=== PATIENT | female | born 1965 | race Caucasian/White ===

== ENCOUNTER 2020-11-22 18:35 | Inpatient (IN) | payer MEDICAID ==
[~2020-11-22] VITALS: Ht 162.6 cm; Wt 60.8 kg
--- NOTE | 2020-11-22 18:45 | NUR ---
[id number] FROM [facility] C/O WEAKNESS, UNABLE TO WALK. TACHY YARDAGE CONTROL CLERK. WOUNDS NOTED TO SACRAL AND BLE COVERED W/ OLD DRESSINg. iv access started. blood draw done sent to lab. pt was provided with bed bath.
[2020-11-22] MEDS ORDERED: IV NS 0.9% 1,000 ML BAG IV ONE (19:00)
[2020-11-22 19:22] LABS: BASOPHILS # (AUTO) 0.1 /CMM (0.0-0.2); BASOPHILS % (AUTO) 0.6 % (0.0-2.0); EOSINOPHILS % (AUTO) 0.5 % (0.0-6.0); HEMATOCRIT 41 % (33-45); HEMOGLOBIN 12.7 g/dL (11.5-14.8); LYMPHOCYTES # (AUTO) 1.7 /CMM (0.8-4.8); LYMPHOCYTES % (AUTO) 8.8 % (20.0-44.0); MEAN CORPUSCULAR HGB CONC 31 g/dl (31.0-36.0); MEAN CORPUSCULAR VOLUME 78 fL (82-100); MONOCYTES # (AUTO) 0.6 /CMM (0.1-1.30); NEUTROPHILS # (AUTO) 16.8 /CMM (1.8-8.9); NEUTROPHILS % (AUTO) 87.1 % (43.0-81.0); RED BLOOD CELL COUNT(AUTO) 5.23 MIL/uL (4.0-5.2); WHITE BLOOD COUNT (AUTO) 19.3 K/uL (4.3-11.0)
[2020-11-22 19:37] LABS: CALCIUM, SERUM 8.8 mg/dL (8.5-10.1); CARBON DIOXIDE 22 mmol/L (21-32); CHLORIDE 99 mmol/L (98-107); CREATININE 0.9 mg/dL (0.6-1.3); GLUCOSE 130 mg/dL (74-106); POTASSIUM 3.9 mmol/L (3.5-5.1); SODIUM SERUM 134 mmol/L (136-145); UREA NITROGEN, BLOOD 15 mg/dL (7-18)
[2020-11-22 19:41] LABS: ALCOHOL, BLOOD < 3 mg/dL (0-0)
[2020-11-22 19:42] LABS: ACETAMINOPHEN 0 ug/ml (10-30)
[2020-11-22 19:50] LABS: ALANINE AMINOTRANSFERASE 12 U/L (12-78); ALBUMIN 2.1 g/dL (3.4-5.0); ALKALINE PHOSPHATASE 110 U/L (46-116); ASPARTATE AMINOTRANSFERASE 19 U/L (15-37); B-TYPE NATRIURETIC PEPTIDE 725 PG/ML (0-125); BILIRUBIN,DIRECT 0.2 mg/dL (0.0-0.2); BILIRUBIN,TOTAL 0.4 mg/dL (0.2-1.0); TOTAL PROTEIN, SERUM 8.6 g/dL (6.4-8.2)
[2020-11-22 20:05] LABS: CREATINE KINASE, TOTAL 61 U/L (26-192)
[2020-11-22 20:20] LABS: PLATELET COUNT (AUTO) 955 /CMM (150-450)
--- NOTE | 2020-11-22 20:21 | NUR ---
PT CHANGED, DOES HAVE WOUNDS ON HER LEGS AND SACRAL AREA.
--- NOTE | 2020-11-22 20:25 | NUR ---
LF 20G IV STARTED, PT NOTED TO BE IN S.T. @ 148. MD AWARE. EKG OBTAINED.
--- NOTE | 2020-11-22 20:45 | NUR ---
COVID SWAB SENT TO LAB.
--- NOTE | 2020-11-22 20:55 | NUR ---
URINE COLLECTED, SENT TO LAB.
[2020-11-22] MEDS ORDERED: ONDANSETRON HCL/PF 4 MG/2 ML VIAL ONE (20:57)
[2020-11-22] MEDS ORDERED: MORPHINE SULFATE INJ 4 MG/ML DISP.SYRIN ONE (20:57)
[2020-11-22] MEDS ORDERED: PIPERACILLIN /TAZOBACTAM 3.375 G in IV D5W 50 ML IV ONE (21:00)
[2020-11-22] MEDS ORDERED: VANCOMYCIN 1 GM in IV D5W 250 ML IV ONE (21:00)
--- NOTE | 2020-11-22 21:03 | NUR ---
PT C/O FOOT PAIN. MD ORDERED MORPHINE 4MG IVP NOW AND ZOFRAN 4MG IVP NOW.
[2020-11-22] MEDS ORDERED: PIPERACILLIN /TAZOBACTAM 3.375 G VIAL IV ONE (21:04)
[2020-11-22] MEDS ORDERED: VANCOMYCIN 1 GM VIAL ONE (21:04)
[2020-11-22 21:10] LABS: BILIRUBIN,URINE MODERATE (NEGATIVE); COLOR,URINE YELLOW (YELLOW); LEUKOCYTE ESTERASE ,URINE Negative (NEGATIVE); NITRITE, URINE Negative (NEGATIVE); PROTEIN,URINE 30 mg/dl (NEGATIVE); UGLUCOSE Negative (NEGATIVE); UROBILINOGEN,URINE >=8.0 EU/dL (0.2)
[2020-11-22 21:10] LABS: EOSINOPHILS % (MANUAL) 1 % (0-4); LYMPHOCYTES % (MANUAL) 11 % (16-48); MONOCYTES % (MANUAL) 4 % (0-11.0); NEUTROPHILS % (MANUAL) 84 (42-76)
[2020-11-22] MEDS ORDERED: ONDANSETRON HCL/PF 4 MG/2 ML VIAL IV ONE (21:30)
[2020-11-22] MEDS ORDERED: MORPHINE SULFATE INJ 2 MG/ML DISP.SYRIN IV ONE (21:30)
[2020-11-22] MEDS ORDERED: IOHEXOL-300 100 ML VIAL IV ONE (21:38)
--- NOTE | 2020-11-22 21:40 | NUR ---
SPOKE TO MD REGARDING PT'S HR, STATED TO DO A REPEAT EKG. EMT AWARE.
--- NOTE | 2020-11-22 21:40 | NUR ---
RADIOLOGY AT BEDSIDE SPEAKING TO PT REGARDING CT.
--- NOTE | 2020-11-22 21:55 | NUR ---
BROUGHT TO CT
[2020-11-22] MEDS ORDERED: LORAZEPAM INJ 2 MG/ML VIAL IV ONE (22:00)
[2020-11-22] MEDS ORDERED: MAG HYDROX/AL HYDROX/SIMETH 30 ML UDC PO PRN (22:00)
[2020-11-22] MEDS ORDERED: LORAZEPAM INJ 2 MG/ML VIAL IV PRN (22:00)
[2020-11-22] MEDS ORDERED: Z GUARD REMEDY 2 OZ OINT TP PRN (22:00)
[2020-11-22] MEDS ORDERED: IV NS 0.9% 1,000 ML IV ONE (22:00)
[2020-11-22] MEDS ORDERED: TEMAZEPAM 15 MG CAPSULE PO PRN (22:00)
[2020-11-22] MEDS ORDERED: ONDANSETRON HCL/PF 4 MG/2 ML VIAL IVP PRN (22:00)
[2020-11-22] MEDS ORDERED: MAGNESIUM HYDROXIDE 30 ML UDC PO PRN (22:00)
[2020-11-22] MEDS ORDERED: HYDROCODONE/APAP 5/325MG TABLET PO PRN (22:00)
--- NOTE | 2020-11-22 22:10 | NUR ---
PT BACK FROM CT. ON MONITOR AND PULSE OX. REMAINS TACHY AT 143
--- NOTE | 2020-11-22 23:40 | NUR ---
PT ASLEEP, VSS. WILL CONTINUE TO MONITOR.
[2020-11-23] MEDS: IV NS 0.9% 1,000 ML IV PRN (00:05)
[2020-11-23] MEDS ORDERED: ENOXAPARIN SODIUM 40 MG/0.4 ML DISP.SYRIN SQ ONE ×2 (00:05→21:00)
[2020-11-23] MEDS: ENOXAPARIN SODIUM 40 MG/0.4 ML DISP.SYRIN SQ SCH ×2 (00:12→21:07)
--- NOTE | 2020-11-23 02:15 | NUR ---
PT RESTING COMFORTABLY. VSS.
[2020-11-23] MEDS ORDERED: ZOSYN IVPB 3.375 G in IV D5W 50ml IV ONE (03:00)
--- NOTE | 2020-11-23 04:38 | NUR ---
MANISHID SWABBED, SENT TO LAB.
[2020-11-23 05:27] LABS: BASOPHILS # (AUTO) 0.1 /CMM (0.0-0.2); BASOPHILS % (AUTO) 0.6 % (0.0-2.0); EOSINOPHILS % (AUTO) 1.7 % (0.0-6.0); HEMATOCRIT 30 % (33-45); HEMOGLOBIN 9.4 g/dL (11.5-14.8); LYMPHOCYTES # (AUTO) 1.6 /CMM (0.8-4.8); LYMPHOCYTES % (AUTO) 12.7 % (20.0-44.0); MEAN CORPUSCULAR HGB CONC 32 g/dl (31.0-36.0); MEAN CORPUSCULAR VOLUME 77 fL (82-100); MONOCYTES # (AUTO) 0.5 /CMM (0.1-1.30); MONOCYTES % (AUTO) 3.6 % (2.0-12.0); NEUTROPHILS # (AUTO) 10.3 /CMM (1.8-8.9); NEUTROPHILS % (AUTO) 81.4 % (43.0-81.0); PLATELET COUNT (AUTO) 617 /CMM (150-450); RED BLOOD CELL COUNT(AUTO) 3.89 MIL/uL (4.0-5.2); WHITE BLOOD COUNT (AUTO) 12.7 K/uL (4.3-11.0)
[2020-11-23 05:44] LABS: CALCIUM, SERUM 7.7 mg/dL (8.5-10.1); CREATININE 0.8 mg/dL (0.6-1.3); MAGNESIUM 1.6 mg/dL (1.8-2.4); PHOSPHORUS 2.9 mg/dL (2.5-4.9); POTASSIUM 2.9 mmol/L (3.5-5.1)
[2020-11-23 05:56] LABS: THYROID STIMULATING HORMONE 3.611 uIU/mL (0.358-3.74)
--- NOTE | 2020-11-23 07:32 | NUR ---
PATIENT IN BED ASLEEP, EASILY AROUSABLE BY VOICE, HOOOKED TO MONITOR. VSS. GOES BACK IMMEDIATELY TO SLEEP. WILL CONTINUE TO MONITOR
[2020-11-23] MEDS: PANTOPRAZOLE 40 MG TABLET.DR PO SCH (07:46)
[2020-11-23] MEDS ORDERED: PANTOPRAZOLE 40 MG TABLET.DR PO ONE (07:46)
[2020-11-23] MEDS: VANCOMYCIN 0.75 GM in IV D5W 250 ML IV SCH ×2 (08:14→16:21)
--- NOTE | 2020-11-23 08:42 | NUR ---
PATIENT REPOSITIONED FOR COMFORT
--- NOTE | 2020-11-23 10:23 | NUR ---
PATIENT IN BED ASLEEP, EASILY AROUSABLE BY VOICE, HOOOKED TO MONITOR. VSS. GOES BACK IMMEDIATELY TO SLEEP. WILL CONTINUE TO MONITOR
[2020-11-23] MEDS: POTASSIUM CHLORIDE 20 MEQ TAB.PRT.SR PO SCH ×5 (10:30→14:50)
[2020-11-23] MEDS ORDERED: Magnesium 1GM/D5W 100ML PREMIX 200 ML IV ONE (10:35)
[2020-11-23] MEDS ORDERED: POTASSIUM CHLORIDE 20 MEQ TAB.PRT.SR PO ONE (10:36)
[2020-11-23] MEDS: Magnesium 1GM/D5W 100ML PREMIX 100 ML IV SCH ×2 (10:40→11:50)
[2020-11-23] MEDS: PIPERACILLIN /TAZOBACTAM 3.375 G in IV D5W 50 ML IV SCH ×3 (12:13→23:30)
--- NOTE | 2020-11-23 12:41 | NUR ---
PATIENT AWAKE, EATING BREAKFAST. TOLERATING PO WELL.
--- NOTE | 2020-11-23 12:54 | NUR ---
GIVEN PATIENT K DUR 20MG PO. WILL GIVE THE REST OF K DUR AFTER EVERY HOUR
--- NOTE | 2020-11-23 15:33 | NUR ---
PATIENT IN BED ASLEEP, EASILY AROUSABLE BY VOICE, HOOOKED TO MONITOR. VSS. GOES BACK IMMEDIATELY TO SLEEP. WILL CONTINUE TO MONITOR
--- NOTE | 2020-11-23 17:51 | NUR ---
CLEANED PATIENT. CHANGED TO NEW LINEN AND HOSP GOWN. REPOSITIONED FOR COMFORT
--- NOTE | 2020-11-23 18:00 | NUR ---
PATIENT NOTED WITH SACROCOCYX UNABLE TO DETERMINE PRESSURE ULCER 8CM X 6CM, CLEANSED W NS. PAT DRY, APPLIED ZINC OXIDE, APPLIED W FOAM DRESSING. MASD TO ENTIRE RIGHT AND LEFT BUTTOCK EXTENDING TO BOTH SIDES OF UPPER THIGH AND GROIN AREA. CLEANSED W NS, PAT DRY AND APPLIED ZINC OXIDE. RLE AND LLE MULTIPLE SCABBED AND OPEN WOUNDS. CLEANSED W NS. PAT DRY, LEFT OPEN TO AIR.
--- NOTE | 2020-11-23 19:24 | NUR ---
ASSUMED CARE. PT AAOX4, NO ACUTE DISTRESS NOTED, RESP EVEN AND UNLABORED. NO PAIN OR DISCOMFORT NOTED AT THIS TIME. PT REMAINS ON CARDIAC MONITORING, CONTINUOUS POX. CALL LIGHT WITHIN REACH. WILL CONTINUE TO MONITOR PT CLOSELY.
[2020-11-23] MEDS ORDERED: HYDROCODONE/APAP 10/325MG TABLET ONE (23:59)
[2020-11-24] MEDS: VANCOMYCIN 0.75 GM in IV D5W 250 ML IV SCH ×2 (00:03→18:32)
[2020-11-24] MEDS: HYDROCODONE/APAP 10/325MG TABLET PO PRN ×2 (00:13→14:21)
--- NOTE | 2020-11-24 01:18 | NUR ---
PT RESTING QUIETLY, NO ACUTE DISTRESS NOTED, RESP EVEN AND UNLABORE. NO PAIN OR DISCOMFORT NOTED AT THIS TIME. CALL LIGHT WITHIN REACH. WILL CONTINUE TO MONITOR PT CLOSELY.
[2020-11-24] MEDS ORDERED: MORPHINE SULFATE INJ 4 MG/ML DISP.SYRIN IV STA (05:07)
[2020-11-24] MEDS ORDERED: ONDANSETRON HCL/PF 4 MG/2 ML VIAL ONE ×2 (05:08→14:19)
[2020-11-24] MEDS ORDERED: MORPHINE SULFATE INJ 4 MG/ML DISP.SYRIN ONE (05:08)
[2020-11-24] MEDS: IV NS 0.9% 1,000 ML IV PRN ×3 (05:15→21:28)
--- NOTE | 2020-11-24 05:15 | NUR ---
SL 22G TO R WRIST. SL TO LFA REMOVED, CATH INTACT, 4X4 AND PRESSURE APPLIED.
[2020-11-24] MEDS ORDERED: ONDANSETRON HCL/PF - ER 4 MG/2 ML VIAL IV ONE (05:30)
[2020-11-24] MEDS: PIPERACILLIN /TAZOBACTAM 3.375 G in IV D5W 50 ML IV SCH ×3 (05:57→18:00)
--- NOTE | 2020-11-24 06:02 | NUR ---
CLEANED PATIENT. CHANGED TO NEW LINEN AND HOSP GOWN.
--- NOTE | 2020-11-24 07:14 | NUR ---
REPORT GIVEN TO AM SHIFT BRENDA ESTES.
[2020-11-24] MEDS ORDERED: PANTOPRAZOLE 40 MG TABLET.DR PO ONE (07:51)
[2020-11-24] MEDS: PANTOPRAZOLE 40 MG TABLET.DR PO SCH (07:52)
[2020-11-24 08:41] LABS: BASOPHILS % (AUTO) 0.6 % (0.0-2.0); EOSINOPHILS % (AUTO) 7.6 % (0.0-6.0); HEMATOCRIT 32 % (33-45); HEMOGLOBIN 9.9 g/dL (11.5-14.8); LYMPHOCYTES # (AUTO) 1.6 /CMM (0.8-4.8); LYMPHOCYTES % (AUTO) 20.3 % (20.0-44.0); MEAN CORPUSCULAR HGB CONC 31 g/dl (31.0-36.0); MEAN CORPUSCULAR VOLUME 79 fL (82-100); MONOCYTES # (AUTO) 0.4 /CMM (0.1-1.30); MONOCYTES % (AUTO) 5.2 % (2.0-12.0); NEUTROPHILS # (AUTO) 5.2 /CMM (1.8-8.9); NEUTROPHILS % (AUTO) 66.3 % (43.0-81.0); PLATELET COUNT (AUTO) 692 /CMM (150-450); RED BLOOD CELL COUNT(AUTO) 4.07 MIL/uL (4.0-5.2); WHITE BLOOD COUNT (AUTO) 7.8 K/uL (4.3-11.0)
--- NOTE | 2020-11-24 09:42 | NUR ---
held 8am Vancomycin IV due to vanco trough level 29, Pati (pharmacist) aware.
--- NOTE | 2020-11-24 09:48 | NUR ---
WOUND CARE CONSULT: PT PRESENTS WITH LARGE SACRAL UNSTAGEABLE ULCER WITH FOUL PURULENT DRAINAGE, RASH AND INCONTINENCE ASSOCIATED SKIN DAMAGE TO BUTTOCKS AND PERINEUM WELL BILATERAL LOWER LEG DRY WOUNDS WITH OPEN AREA TO LEFT LOWER LEG, PRESENT ON ADMISSION. RECOMMEND SURGICAL AND DPM CONSULTS. DR JESSENIA CHEN AND DR MELTON NOTIFIED OF CONSULT REQUESTS. RECOMMENDATIONS MADE FOR SACRAL AND BUTTOCK WOUNDS/SKIN DAMAGE AND DISCUSSED WITH NURSING STAFF. DEFER TO DPM FOR LOWER EXTREMITIES. MD IN AGREEMENT WITH PLAN OF CARE.
[2020-11-24 09:57] LABS: CALCIUM, SERUM 8.2 mg/dL (8.5-10.1); CREATININE 0.7 mg/dL (0.6-1.3); POTASSIUM 4.1 mmol/L (3.5-5.1)
[2020-11-24] MEDS: DAKINS QUARTER STRENGTH (0.125%) 480 ML BOTTLE TOP SCH (10:00)
--- NOTE | 2020-11-24 12:12 | NUR ---
Funds Development Director consult requested by CARMEN Cerna for homelessness. Patient was lying in her bed sleeping. Patient was arousable by verbal cues. Patient is known to this SW from previous admission. Patient informed this SW that she has been homeless for 4 years. Patient informed this SW that she was previously living, [facility]. Patient reported to this SW that she left [facility] because she was not able to smoke cigarettes at the facility. Patient reported that she had been on the streets with her wheelchair. Patient reported that she would like to return to a assisted facility. Patient became emotional stating that these last few weeks have been difficult for her as she tries to stay safe on the streets. SW validated patient's emotions and patient thanked this SW for speaking with her. Patient informed this SW that she was brought to [facility] without her wheelchair. SW informed patient this SW would follow-up with case management team regarding patient wheelchair. Plan: SW to coordinate with Case Management team regarding assisted facility placement and a wheelchair for the patient. SW remains available for all needs regarding this patient.
--- NOTE | 2020-11-24 13:57 | NUR ---
VANCO TROUGH AT 5PM
[2020-11-24] MEDS ORDERED: HYDROCODONE/APAP 10/325MG TABLET ONE (14:19)
--- NOTE | 2020-11-24 16:43 | NUR ---
DR CHEN AT BEDSIDE TO CHECK WOUNDS OF PATIENT. RECOMMENDED PODIATRY CONSULT AND WILL SCHEDULE FOR DEBRIDEMENT
[2020-11-24] MEDS ORDERED: PIPERACILLIN /TAZOBACTAM 3.375 G VIAL IV ONE (17:31)
[2020-11-24] MEDS: CLOTRIMAZOLE 1% 15 GM TUBE TP SCH (17:35)
--- NOTE | 2020-11-24 17:40 | NUR ---
CLEANED PATIENT, CHANGED TO NEW LINEN AND HOSP GOWN, PROVIDED W WARM BLANKET.
--- NOTE | 2020-11-24 17:42 | NUR ---
PATIENT NOTED WITH SACROCOCYX UNABLE TO DETERMINE PRESSURE ULCER 8CM X 6CM, CLEANSED W NS. PAT DRY, APPLIED ZINC OXIDE, COVERED W FOAM DRESSING. MASD TO ENTIRE RIGHT AND LEFT BUTTOCK EXTENDING TO BOTH SIDES OF UPPER THIGH AND GROIN AREA. CLEANSED W NS, PAT DRY AND APPLIED LOTRIMIN 1% and ZINC OXIDE. RLE AND LLE MULTIPLE SCABBED AND OPEN WOUNDS. CLEANSED W NS. PAT DRY, LEFT OPEN TO AIR.
--- NOTE | 2020-11-24 18:06 | NUR ---
PATIENT ABLE TO EAT 90% OF DINNER.
--- NOTE | 2020-11-24 18:48 | NUR ---
CALLED PODIATRY WOUND CARE DR. CADENA [phone] LEFT [facility] TO CALL US BACK.
--- NOTE | 2020-11-24 18:55 | NUR ---
COLLECTED 1250 CC OF URINE FROM PROCTOR CATHETER
--- NOTE | 2020-11-24 19:24 | NUR ---
REPORT GIVEN TO PHYLLIS GUTIERREZ FOR CARMEN
--- NOTE | 2020-11-24 20:18 | NUR ---
PT REMAINS ON MONITOR AND PULSE OX. AWARE OF PLAN OF CARE. VSS. WILL CONTINUE TO MONITOR.
[2020-11-24] MEDS: ENOXAPARIN SODIUM 40 MG/0.4 ML DISP.SYRIN SQ SCH (21:19)
[2020-11-24] MEDS ORDERED: ENOXAPARIN SODIUM 40 MG/0.4 ML DISP.SYRIN SQ ONE (21:21)
[2020-11-25] MEDS: PIPERACILLIN /TAZOBACTAM 3.375 G in IV D5W 50 ML IV SCH ×4 (00:20→17:47)
--- NOTE | 2020-11-25 00:47 | NUR ---
PT PROVIDED WITH BLANKETS, VSS.
[2020-11-25] MEDS ORDERED: MORPHINE SULFATE INJ 4 MG/ML DISP.SYRIN IV PRN (05:00)
[2020-11-25 05:31] LABS: BASOPHILS % (AUTO) 0.6 % (0.0-2.0); EOSINOPHILS % (AUTO) 6.9 % (0.0-6.0); HEMATOCRIT 30 % (33-45); HEMOGLOBIN 9.6 g/dL (11.5-14.8); LYMPHOCYTES # (AUTO) 1.7 /CMM (0.8-4.8); LYMPHOCYTES % (AUTO) 19.9 % (20.0-44.0); MEAN CORPUSCULAR HGB CONC 32 g/dl (31.0-36.0); MEAN CORPUSCULAR VOLUME 77 fL (82-100); MONOCYTES # (AUTO) 0.5 /CMM (0.1-1.30); MONOCYTES % (AUTO) 5.8 % (2.0-12.0); NEUTROPHILS # (AUTO) 5.7 /CMM (1.8-8.9); NEUTROPHILS % (AUTO) 66.8 % (43.0-81.0); PLATELET COUNT (AUTO) 695 /CMM (150-450); RED BLOOD CELL COUNT(AUTO) 3.88 MIL/uL (4.0-5.2); WHITE BLOOD COUNT (AUTO) 8.5 K/uL (4.3-11.0)
[2020-11-25 05:50] LABS: CALCIUM, SERUM 8.2 mg/dL (8.5-10.1); CREATININE 0.6 mg/dL (0.6-1.3); MAGNESIUM 1.7 mg/dL (1.8-2.4); PHOSPHORUS 3.1 mg/dL (2.5-4.9); POTASSIUM 4.8 mmol/L (3.5-5.1)
--- NOTE | 2020-11-25 07:02 | NUR ---
PT NOTED ASLEEP, VSS.
[2020-11-25] MEDS ORDERED: PANTOPRAZOLE 40 MG TABLET.DR PO ONE (07:55)
[2020-11-25] MEDS: PANTOPRAZOLE 40 MG TABLET.DR PO SCH (07:57)
--- NOTE | 2020-11-25 08:51 | NUR ---
PATIENT IN BED ASLEEP, EASILY AROUSABLE BY VOICE. HOOKED TO MONITOR. VSS. WILL CONTINUE TO MONITOR ACCORDINGLY
[2020-11-25] MEDS: DAKINS QUARTER STRENGTH (0.125%) 480 ML BOTTLE TOP SCH (09:09)
[2020-11-25] MEDS: CLOTRIMAZOLE 1% 15 GM TUBE TP SCH ×2 (09:10→16:56)
[2020-11-25] MEDS ORDERED: Magnesium 1GM/D5W 100ML PREMIX 200 ML IV ONE (12:19)
[2020-11-25] MEDS: Magnesium 1GM/D5W 100ML PREMIX 100 ML IV SCH ×2 (12:20→13:35)
[2020-11-25] MEDS: VANCOMYCIN 0.75 GM in IV D5W 250 ML IV SCH (13:35)
--- NOTE | 2020-11-25 13:39 | NUR ---
GOT BED 324-1
--- NOTE | 2020-11-25 14:26 | NUR ---
report given to nolberto SILVA for dyllan
--- NOTE | 2020-11-25 14:46 | NUR ---
wheeled patient via gurney accompanied by RN and emt in no distress, Nurse at bedside to assume care.
[2020-11-25 14:50] VITALS: BP 115/91
--- NOTE | 2020-11-25 14:50 | NUR ---
tele cannon fire direction specialist: admission received pt from transition care to be admitted to floor. pt awake, a/ox3. vital signs taken, pt refused tele monitor. pt says that she doesn't want any surgery done to her. per e.r. report, dr. adams (surgeon) planning to do sacral wound debridement. pt refusing skin assessment and photos. oriented to room and surroundings. vss. will continue to monitor.
[2020-11-25 16:00] VITALS: BP 122/80
--- NOTE | 2020-11-25 16:00 | NUR ---
tele flatwork presser: notes pt still refusing tele and skin assessment. pt just wants to rest. instructed to call for assistance.
[2020-11-25] MEDS: IV NS 0.9% 1,000 ML IV PRN (16:56)
--- NOTE | 2020-11-25 19:15 | NUR ---
m/s board mill supervisor: notes report given to erin (higinio) for continuity of care.
--- NOTE | 2020-11-25 19:30 | NUR ---
MS RN OPENING NOTES RECEIVED PATIENT IN BED AWAKE, ALERT AND ORIENTED X3. ABLE TO VERBALIZE NEEDS. NO S/SX OF ACUTE RESPIRATORY DISTRESS NOTED. DENIES PAIN OR DISCOMFORT AT THIS TIME. IV ACCESS ON RFA #18G PATENT AND INTACT, RUNNING NS@150ML/HR. KEPT CLEAN AND DRY. SAFETY PRECAUTION IN PLACE AND MAINTAINED AT ALL TIMES. BED IN LOWEST LOCKED POSITION, HOB ELEVATED, SIDE RAILS UP X 2, CALL LIGHT AND TABLE WITHIN REACH. WILL CONTINUE TO MONITOR.
[2020-11-25 20:00] VITALS: BP 139/88
[2020-11-25] MEDS: ENOXAPARIN SODIUM 40 MG/0.4 ML DISP.SYRIN SQ SCH (21:20)
[2020-11-26] MEDS: PIPERACILLIN /TAZOBACTAM 3.375 G in IV D5W 50 ML IV SCH ×4 (00:30→17:25)
[2020-11-26] MEDS: IV NS 0.9% 1,000 ML IV PRN ×2 (01:19→12:09)
--- NOTE | 2020-11-26 05:10 | NUR ---
MS RN NOTE: REFUSED SKIN ASSESSMENT PATIENT REFUSING SKIN ASSESSMENT AND PHOTOS. EXPLAINED RISKS VS BENEFITS BUT PATIENT CONTINUED TO REFUSE. PATIENT STATED "NO, I DON'T WANT IT". WILL ENDORSE TO DAY SHIFT NURSE FOR CONTINUITY OF CARE.
[2020-11-26] MEDS: VANCOMYCIN 0.75 GM in IV D5W 250 ML IV SCH ×2 (05:30→23:11)
--- NOTE | 2020-11-26 06:54 | NUR ---
MS RN CLOSING NOTES PATIENT IN BED AWAKE, ALERT AND ORIENTED X3. ABLE TO VERBALIZE NEEDS. NO S/SX OF ACUTE RESPIRATORY DISTRESS NOTED. DENIES PAIN OR DISCOMFORT AT THIS TIME. IV ACCESS ON RFA #18G PATENT AND INTACT, RUNNING NS@150ML/HR. KEPT CLEAN AND DRY. SAFETY PRECAUTION IN PLACE AND MAINTAINED AT ALL TIMES. BED IN LOWEST LOCKED POSITION, HOB ELEVATED, SIDE RAILS UP X 2, CALL LIGHT AND TABLE WITHIN REACH. WILL ENDORSE TO DAY SHIFT NURSE FOR CONTINUITY OF CARE.
[2020-11-26 07:27] LABS: CALCIUM, SERUM 7.9 mg/dL (8.5-10.1); CREATININE 0.7 mg/dL (0.6-1.3); POTASSIUM 3.6 mmol/L (3.5-5.1)
--- NOTE | 2020-11-26 07:30 | NUR ---
MS/RN OPENING NOTES PATIENT RECEIVED IB BED. A/O X3. NO SOB. IN NO APPARENT DISTRESS. ON PROCTOR CATH, INTACT, DRAINING IN YELLOW URINE. LFA #18G NS @150 ML/HR. PROVIDED SAFETY MEASURES. BED IN LOWEST POSITION, LOCKED. SIDE RAILS UP X 2. CALL LIGHT WITHIN REACH. WILL CONTINUE PLAN OF CARE.
[2020-11-26 08:44] VITALS: BP 137/74
[2020-11-26] MEDS: PANTOPRAZOLE 40 MG TABLET.DR PO SCH (08:51)
[2020-11-26] MEDS: DAKINS QUARTER STRENGTH (0.125%) 480 ML BOTTLE TOP SCH (08:52)
[2020-11-26] MEDS: CLOTRIMAZOLE 1% 15 GM TUBE TP SCH ×2 (08:53→17:25)
[2020-11-26 12:00] VITALS: BP 126/68
--- NOTE | 2020-11-26 15:02 | NUR ---
MS/RN NOTES PATIENT FOR SACRAL WOUND DEBRIDEMENT AND R LOWER LEG EXCISIONAL WOUND DEBRIDEMENT. OBTAINED CONSENT FOR BOTH. BUT PATIENT STATED THAT SHE DOESN'T WANT TO DO THE R LEG DEBRIDEMENT ANYMORE. WILL ENDORSE IT TO ONCOMING SHIFT.
[2020-11-26 16:06] VITALS: BP 105/52
--- NOTE | 2020-11-26 18:41 | NUR ---
MS/RN CLOSING NOTES PATIENT RESTING IN BED COMFORTABLY. A/O X3. NO SOB. IN NO APPARENT DISTRESS. ON PROCTOR CATH, INTACT, DRAINING IN YELLOW URINE. LFA #18G. R WRIST #22 G. ROUTINE MEDS WERE GIVEN. SAFETY MEASURES MAINTAINED. BED IN LOWEST POSITION, LOCKED. SIDE RAILS UP X 2. CALL LIGHT WITHIN REACH. WILL ENDORSE TO SEQUINS STRINGER CARMEN..
--- NOTE | 2020-11-26 20:00 | NUR ---
RN NOTES PATIENT RECEIVED IN BED.AWAKE ALERT AFEBRILE. NO SOB. BREATHING EVEN AND UNLABORED. IN NO APPARENT DISTRESS. ON ROOM AIR, TOLERATING WELL. CAILIN MIDLINE. PROVIDED SAFETY MEASURES. BED IN LOWEST POSITION, LOCKED. SIDE RAILS UP X2. CALL LIGHT WITHIN REACH. WILL CONTINUE PLAN OF CARE.
[2020-11-26] MEDS: ENOXAPARIN SODIUM 40 MG/0.4 ML DISP.SYRIN SQ SCH (20:37)
--- NOTE | 2020-11-27 | NUR ---
RN NOTES : PT. IS NPO SINCE MIDNIGHT , FOR PROCEDURES.
[2020-11-27] MEDS: PIPERACILLIN /TAZOBACTAM 3.375 G in IV D5W 50 ML IV SCH ×5 (00:24→23:10)
--- NOTE | 2020-11-27 05:38 | NUR ---
RN NOTES : PT. REFUSED TO SIGNS CONSENT FOR ANESTHESIA FOR PROCEDURES , PT. BEHAVIOUR VERY UNCOOPERATIVE ARGUMENTATIVE WITH STAFF SCREAMING YELLING , WILL CONTINUE TO MONITOR.
--- NOTE | 2020-11-27 06:58 | NUR ---
MS RN CLOSING NOTES PATIENT RESTING IN HER ROOM. PT. BEHAVIOUR VERY UNCOOPERTIVE , NO S/SX OF ACUTE RESPIRATORY DISTRESS NOTED. DENIES PAIN OR DISCOMFORT AT THIS TIME. KEPT CLEAN AND DRY.IV LAC #22G INTACT SAFETY PRECAUTION IN PLACE AND MAINTAINED , CALL LIGHT AND TABLE WITHIN REACH. WILL ENDORSE TO DAY SHIFT NURSE FOR CONTINUITY OF CARE.
[2020-11-27] MEDS: PANTOPRAZOLE 40 MG TABLET.DR PO SCH (07:30)
[2020-11-27 07:38] LABS: BASOPHILS # (AUTO) 0.1 /CMM (0.0-0.2); EOSINOPHILS % (AUTO) 5.4 % (0.0-6.0); HEMATOCRIT 32 % (33-45); HEMOGLOBIN 9.9 g/dL (11.5-14.8); LYMPHOCYTES # (AUTO) 1.3 /CMM (0.8-4.8); LYMPHOCYTES % (AUTO) 22.4 % (20.0-44.0); MEAN CORPUSCULAR HGB CONC 31 g/dl (31.0-36.0); MEAN CORPUSCULAR VOLUME 77 fL (82-100); MONOCYTES # (AUTO) 0.5 /CMM (0.1-1.30); MONOCYTES % (AUTO) 8.8 % (2.0-12.0); NEUTROPHILS # (AUTO) 3.6 /CMM (1.8-8.9); NEUTROPHILS % (AUTO) 62.4 % (43.0-81.0); PLATELET COUNT (AUTO) 635 /CMM (150-450); RED BLOOD CELL COUNT(AUTO) 4.08 MIL/uL (4.0-5.2); WHITE BLOOD COUNT (AUTO) 5.8 K/uL (4.3-11.0)
--- NOTE | 2020-11-27 07:44 | NUR ---
RN OPENING NOTE RECEIVED PATIENT RESTING IN BED. AWAKE, ALERT AND ORIENTED X 3. IV # 22G TO LEFT AC INTACT AND PATENT. CONTINUES ON ROOM AIR WITH NO S/S RESPIRATORY DISTRESS. PATIENT HAS REMAINED NPO THROUGHOUT THE NIGHT. CALL LIGHT WITHIN REACH. WILL CONTINUE TO MONITOR.
[2020-11-27 08:00] VITALS: BP 114/72
[2020-11-27 08:25] LABS: CALCIUM, SERUM 8.7 mg/dL (8.5-10.1); CREATININE 0.6 mg/dL (0.6-1.3); PHOSPHORUS 3.2 mg/dL (2.5-4.9)
[2020-11-27] MEDS: CLOTRIMAZOLE 1% 15 GM TUBE TP SCH ×2 (08:43→17:59)
[2020-11-27] MEDS: DAKINS QUARTER STRENGTH (0.125%) 480 ML BOTTLE TOP SCH (09:13)
--- NOTE | 2020-11-27 10:30 | NUR ---
MS RN NOTE PATIENT REFUSING TO HAVE BOTH DEBRIDEMENTS THAT ARE SCHEDULED. EDUCATED RISKS VS BENEFITS 3X. PATIENT CONTINUE TO REFUSE.
--- NOTE | 2020-11-27 12:16 | NUR ---
MS RN NOTE PATIENT REFUSING BOTH DEBRIDEMENTS SCHEDULED. INFORMED DR. CHEN AND INFORMED TARA MATTHEW.
--- NOTE | 2020-11-27 13:14 | NUR ---
MS RN NOTE SPOKE WITH CHARLENE PRECISION DYER REGARDING PATIENT REFUSING DEBRIDEMENTS. PER CHARLENE SHE WILL CANCEL SCHEDULED PROCEDURES.
--- NOTE | 2020-11-27 15:58 | NUR ---
MS RN NOTE PATIENT SPOKE WITH DR. CHEN ABOUT POSSIBLE DEBRIDEMENT THAT WAS SCHEDULED EARLIER TODAY THAT SHE REFUSED. PATIENT IS NOW AGREEABLE TO DEBRIDEMENT PROCEDURE WITH DR. CHEN TOMORROW. PER MD KEEP PATIENT NPO AFTER MIDNIGHT. PATIENT REFUSED TO HAVE BLOOD TRANSFUSION CONSENT SIGNED DUE TO HER PERSONAL BELIEFS. SHE WAS ABLE TO SIGN REFUSAL FOR BLOOD.
[2020-11-27 16:00] VITALS: BP 115/75
--- NOTE | 2020-11-27 18:23 | NUR ---
MS BRENDA CLOSING NOTE PATIENT CURRENTLY RESTING IN BED. AWAKE, ALERT AND ORIENTED X 3. ABLE TO MAKE NEEDS KNOWN. NO COMPLAINTS OF PAIN THIS SHIFT. CONTINUES ON ROOM AIR WITH NO S/S RESPIRATORY DISTRESS NOTED. PROCTOR CATHETER PATENT AND DRAINING CLEAR, YELLOW URINE. PATIENT WILL BE NPO AT MIDNIGHT FOR DEBRIDEMENT OF WOUNDS TOMORROW. IV TO LEFT AC #22G PATENT WITH NO S/S INFILTRATION OR PHLEBITIS. ASPIRATION, FALLS, AND SAFETY PRECAUTIONS MAINTAINED. CALL LIGHT WITHIN REACH. Addendum: 11/27/20 at 1841 by GIOVANNA COLORADO RN WILL ENDORSE TO PM SHIFT.
[2020-11-27 20:00] VITALS: BP 94/60
[2020-11-27 21:00] VITALS: BP 132/80
[2020-11-27] MEDS: ENOXAPARIN SODIUM 40 MG/0.4 ML DISP.SYRIN SQ SCH (21:00)
--- NOTE | 2020-11-28 | NUR ---
RN NOTES : PT. IS NPO FOR PROCEDURES , PER MD ORDERS, WILL CONTINUE WITH CARE.
[2020-11-28] MEDS: VANCOMYCIN 0.75 GM in IV D5W 250 ML IV SCH (00:28)
[2020-11-28] MEDS: PIPERACILLIN /TAZOBACTAM 3.375 G in IV D5W 50 ML IV SCH ×4 (06:16→23:14)
--- NOTE | 2020-11-28 07:19 | NUR ---
RN NOTES: PATIENT RESTING IN HER ROOM. PT. BEHAVIOUR VERY UNCOOPERTIVE , NO ACUTE RESPIRATORY DISTRESS NOTED. DENIES PAIN OR DISCOMFORT AT THIS TIME. KEPT CLEAN AND DRY.IV LAC #22G INTACT SAFETY PRECAUTION IN PLACE AND MAINTAINED , CALL LIGHT AND TABLE WITHIN REACH. WILL ENDORSE TO DAY SHIFT NURSE FOR CONTINUITY OF CARE.
--- NOTE | 2020-11-28 07:22 | NUR ---
RN NOTES PATIENT RESTING IN BED. , ALERT AWAKE. IV # 18G TO RIGHT AC INTACT AND. CONTINUES ON ROOM AIR WITH NO S/S RESPIRATORY DISTRESS.. CALL LIGHT WITHIN REACH. ENDORSED TO AM NURSE TO CONTUNITY OF CARE..
[2020-11-28] MEDS: PANTOPRAZOLE 40 MG TABLET.DR PO SCH (07:30)
--- NOTE | 2020-11-28 07:43 | NUR ---
MS RN OPENING NOTES RECEIVED PATIENT IN BED, ASLEEP. PATIENT ON ROOM AIR; BREATHING EVEN AND UNLABORED, NO SOB NOTED. NO S/S OF PAIN SUCH MOANING, FACIAL GRIMACING OR GUARDING AT THIS TIME. LAC ALLAN ACCESS G #22 PRESENT AND INTACT. NPO EXCEPT MEDS AT THIS TIME. SAFETY PRECAUTIONS IN PLACE; BED IN LOW POSITION AND LOCKED, RAILS UP X2, CALL LIGHT WITHIN REACH. WILL CONTINUE TO MONITOR PATIENT.
[2020-11-28] MEDS: DAKINS QUARTER STRENGTH (0.125%) 480 ML BOTTLE TOP SCH (08:01)
[2020-11-28] MEDS: CLOTRIMAZOLE 1% 15 GM TUBE TP SCH ×2 (08:01→17:24)
[2020-11-28 08:49] LABS: CALCIUM, SERUM 8.7 mg/dL (8.5-10.1); CREATININE 0.6 mg/dL (0.6-1.3); POTASSIUM 4.3 mmol/L (3.5-5.1)
[2020-11-28] MEDS ORDERED: BACITRACIN 50000 UNITS/VIAL ONE (10:50)
[2020-11-28] MEDS ORDERED: LIDOCAINE MPF 1%-EPI 1:200,000 30 ML VIAL IJ ONE (10:50)
[2020-11-28] MEDS ORDERED: BUPIVACAINE 0.5 % PF 150 MG/30 ML VIAL ONE (10:50)
[2020-11-28] MEDS ORDERED: BUPIVACAINE 0.25% 75 MG/30 ML VIAL ONE (10:51)
--- NOTE | 2020-11-28 10:51 | NUR ---
MS RN NOTES PATIENT WAS TAKEN TO OR FOR PROCEDURE AT 2326
[2020-11-28] MEDS ORDERED: FENTANYL PF 250MCG/5ML AMPUL ONE (10:57)
[2020-11-28] MEDS ORDERED: MIDAZOLAM HCL 2 MG/2ML VIAL ONE (10:57)
[2020-11-28] MEDS ORDERED: SUCCINYLCHOLINE CHLORIDE 20 MG/ML VIAL ONE (10:58)
[2020-11-28] MEDS ORDERED: HYDROMORPHONE 1 MG/1 ML DISP.SYRIN ONE (11:59)
[2020-11-28 16:04] VITALS: BP 88/62
--- NOTE | 2020-11-28 18:48 | NUR ---
MS RN CLOSING NOTES PATIENT IN BED, ASLEEP AFTER HER WOUND DEBRIDEMENT. PATIENT ON OXYGEN THERAPY AT 2 LPM VIA NASAL CANULA; BREATHING EVEN AND UNLABORED, NO SOB NOTED. NO COMPLAINS OF PAIN DURING SHIFT. LAC IV ACCESS G #22 PRESENT AND INTACT. ALL NEEDS ATTENDED THROUGHOUT THE DAY. SAFETY PRECAUTIONS IN PLACE; BED IN LOW POSITION AND LOCKED, RAILS UP X2, CALL LIGHT WITHIN REACH. WILL ENDORSE TO TAPE CONTROLLED MACHINE STITCHER NURSE.
--- NOTE | 2020-11-28 19:08 | NUR ---
MS RN OPENING NOTES RECEIVED PATIENT IN BED AWAKE, ALERT AND ORIENTED X3. ABLE TO VERBALIZE NEEDS. NO S/SX OF ACUTE RESPIRATORY DISTRESS NOTED. PATIENT IS ON O2 THERAPY @2LPM VIA NC, TOLERATING WELL. DENIES PAIN OR DISCOMFORT AT THIS TIME. IV ACCESS ON LAC #22G PATENT AND INTACT. KEPT CLEAN AND DRY. SAFETY PRECAUTIONS IN PLACE AND MAINTAINED AT ALL TIMES. BED IN LOWEST LOCKED POSITION, HOB ELEVATED, SIDE RAILS UP X 2, CALL LIGHT AND TABLE WITHIN REACH. WILL CONTINUE TO MONITOR.
[2020-11-28] MEDS: ACETAMINOPHEN 325 MG TABLET PO PRN (19:37)
[2020-11-28 20:00] VITALS: BP 118/64
[2020-11-28] MEDS: ENOXAPARIN SODIUM 40 MG/0.4 ML DISP.SYRIN SQ SCH (21:02)
[2020-11-28 22:00] VITALS: BP 118/64
[2020-11-29] MEDS: VANCOMYCIN 0.75 GM in IV D5W 250 ML IV SCH (00:16)
[2020-11-29] MEDS: PIPERACILLIN /TAZOBACTAM 3.375 G in IV D5W 50 ML IV SCH ×4 (05:17→23:42)
--- NOTE | 2020-11-29 06:40 | NUR ---
MS RN CLOSING NOTES PATIENT IN BED AWAKE, ALERT AND ORIENTED X3. ABLE TO VERBALIZE NEEDS. NO S/SX OF ACUTE RESPIRATORY DISTRESS NOTED. PATIENT IS ON O2 THERAPY @2LPM VIA NC, TOLERATING WELL. DENIES PAIN OR DISCOMFORT AT THIS TIME. IV ACCESS ON LAC #22G PATENT AND INTACT. KEPT CLEAN AND DRY. SAFETY PRECAUTIONS IN PLACE AND MAINTAINED AT ALL TIMES. BED IN LOWEST LOCKED POSITION, HOB ELEVATED, SIDE RAILS UP X 2, CALL LIGHT AND TABLE WITHIN REACH. WILL ENDORSE TO DAY SHIFT NURSE FOR CONTINUITY OF CARE.
--- NOTE | 2020-11-29 07:30 | NUR ---
MS/RN OPENING NOTE RECEIVED PATIENT FROM WAITER/WAITRESS TOURIST CLASS NURSE. PATIENT IS A/O X2-3. PATIENT WAS COMPLAINING OF LAC #22 LEAKING. WAITER/WAITRESS TOURIST CLASS NURSE REMOVED AND APPLIED PRESSURE DRESSING AND STARTED NEW IV LINE, JOSE #24 INTACT AND PATENT. NO ACUTE DISTRESS NOTED AT THIS TIME. ALL SAFETY MEASURES IN PLACE BED LOCKED AND IN LOWEST POSITION, CALL LIGHT WITHIN REACH, WILL CONTINUE TO MONITOR AN ENSURE SAFETY.
[2020-11-29] MEDS: PANTOPRAZOLE 40 MG TABLET.DR PO SCH (07:52)
[2020-11-29 08:00] VITALS: BP 146/78
[2020-11-29] MEDS: DAKINS QUARTER STRENGTH (0.125%) 480 ML BOTTLE TOP SCH (09:12)
[2020-11-29] MEDS: CLOTRIMAZOLE 1% 15 GM TUBE TP SCH ×2 (09:12→16:06)
[2020-11-29] MEDS: ACETAMINOPHEN 325 MG TABLET PO PRN (12:35)
--- NOTE | 2020-11-29 13:55 | NUR ---
MS/RN DRESSING CHANGE DRESSING CHANGE WAS PERFORMED ON SACRAL PRESSURE ULCERS PER ORDER.
[2020-11-29 15:05] LABS: POTASSIUM 4.2 mmol/L (3.5-5.1)
[2020-11-29 15:14] LABS: CALCIUM, SERUM 9.1 mg/dL (8.5-10.1); CREATININE 0.7 mg/dL (0.6-1.3)
[2020-11-29 16:00] VITALS: BP 100/62
--- NOTE | 2020-11-29 19:25 | NUR ---
MS RN OPENING NOTES RECEIVED PATIENT IN BED AWAKE, ALERT AND ORIENTED X3. ABLE TO VERBALIZE NEEDS. NO S/SX OF ACUTE RESPIRATORY DISTRESS NOTED. PATIENT IS ON O2 THERAPY @2LPM VIA NC, TOLERATING WELL. DENIES PAIN OR DISCOMFORT AT THIS TIME. IV ACCESS ON JOSE #24G PATENT AND INTACT. KEPT CLEAN AND DRY. SAFETY PRECAUTIONS IN PLACE AND MAINTAINED AT ALL TIMES. BED IN LOWEST LOCKED POSITION, HOB ELEVATED, SIDE RAILS UP X 2, CALL LIGHT AND TABLE WITHIN REACH. WILL CONTINUE TO MONITOR.
--- NOTE | 2020-11-29 19:30 | NUR ---
MS RN CLOSING NOTES PATIENT IN BED AWAKE, ALERT AND ORIENTED X2-3. ABLE TO VERBALIZE NEEDS. NO S/S OF ACUTE RESPIRATORY DISTRESS NOTED. PATIENT IS ON ROOM AIR, TOLERATING WELL. DENIES PAIN OR DISCOMFORT AT THIS TIME. IV ACCESS ON LFA #24G PATENT AND INTACT. KEPT CLEAN AND DRY. SAFETY PRECAUTIONS IN PLACE AND MAINTAINED AT ALL TIMES. BED IN LOWEST LOCKED POSITION, HOB ELEVATED, SIDE RAILS UP X 2, CALL LIGHT AND TABLE WITHIN REACH. WILL ENDORSE TO PROCESS COACH NURSE FOR CONTINUITY OF CARE.
[2020-11-29 20:00] VITALS: BP 114/56
[2020-11-29] MEDS: ENOXAPARIN SODIUM 40 MG/0.4 ML DISP.SYRIN SQ SCH (20:44)
[2020-11-30] MEDS: VANCOMYCIN 0.75 GM in IV D5W 250 ML IV SCH (00:09)
[2020-11-30] MEDS: PIPERACILLIN /TAZOBACTAM 3.375 G in IV D5W 50 ML IV SCH ×4 (05:09→23:45)
--- NOTE | 2020-11-30 07:00 | NUR ---
MS RN CLOSING NOTES PATIENT IN BED AWAKE, ALERT AND ORIENTED X3. ABLE TO VERBALIZE NEEDS. NO S/SX OF ACUTE RESPIRATORY DISTRESS NOTED. PATIENT IS ON O2 THERAPY @2LPM VIA NC, TOLERATING WELL. DENIES PAIN OR DISCOMFORT AT THIS TIME. IV ACCESS ON JOSE #24G PATENT AND INTACT. KEPT CLEAN AND DRY. SAFETY PRECAUTIONS IN PLACE AND MAINTAINED AT ALL TIMES. BED IN LOWEST LOCKED POSITION, HOB ELEVATED, SIDE RAILS UP X 2, CALL LIGHT AND TABLE WITHIN REACH. WILL ENDORSE TO DAY SHIFT NURSE FOR CONTINUITY OF CARE.
[2020-11-30] MEDS: PANTOPRAZOLE 40 MG TABLET.DR PO SCH (07:38)
--- NOTE | 2020-11-30 07:55 | NUR ---
MS RN OPENING NOTES RECEIVED PATIENT IN BED AWAKE, ALERT AND ORIENTED X2-3. ABLE TO VERBALIZE NEEDS. NO S/S OF ACUTE RESPIRATORY DISTRESS NOTED. ROOM AIR, TOLERATING WELL. DENIES PAIN OR DISCOMFORT AT THIS TIME. IV ACCESS ON JOSE #24G PATENT AND INTACT. KEPT CLEAN AND DRY. SAFETY PRECAUTIONS IN PLACE AND MAINTAINED AT ALL TIMES. BED IN LOWEST LOCKED POSITION, HOB ELEVATED, SIDE RAILS UP X 2, CALL LIGHT AND TABLE WITHIN REACH. WILL CONTINUE TO MONITOR ENSURE SAFETY.
[2020-11-30 08:00] VITALS: BP 121/68
[2020-11-30] MEDS: CLOTRIMAZOLE 1% 15 GM TUBE TP SCH ×2 (08:11→16:47)
[2020-11-30] MEDS: DAKINS QUARTER STRENGTH (0.125%) 480 ML BOTTLE TOP SCH (08:12)
[2020-11-30] MEDS: ACETAMINOPHEN 325 MG TABLET PO PRN (11:17)
--- NOTE | 2020-11-30 15:09 | NUR ---
MS/RN DRESSING CHANGE DRESSING CHANGE WAS PERFORMED ON SACRAL PRESSURE ULCERS PER ORDER.
[2020-11-30 16:00] VITALS: BP 113/60
[2020-11-30 19:00] VITALS: BP 104/63
--- NOTE | 2020-11-30 19:02 | NUR ---
MS/RN CLOSING NOTES PATIENT IN BED AWAKE, ALERT AND ORIENTED X3. ABLE TO VERBALIZE NEEDS. NO S/S OF ACUTE RESPIRATORY DISTRESS NOTED. PATIENT IS ON ROOM AIR, TOLERATING WELL. DENIES PAIN OR DISCOMFORT AT THIS TIME. IV ACCESS ON JOSE #24G PATENT AND INTACT. KEPT CLEAN AND DRY. SAFETY PRECAUTIONS IN PLACE AND MAINTAINED AT ALL TIMES. BED IN LOWEST LOCKED POSITION, HOB ELEVATED, SIDE RAILS UP X 2, CALL LIGHT AND TABLE WITHIN REACH. WILL ENDORSE TO LABORER SAWMILL.
--- NOTE | 2020-11-30 19:29 | NUR ---
MS RN OPENING NOTES PT RECEIVED AT BEDSIDE. AWAKE, ALERT. CALM, COOPERATIVE. ALERT AND ORIENTED X2-3. PROCTOR CATHETER INTACT. URINE DRAINAGE: YELLOW, CLEAR. NO SIGNS OF INFECTION. NO FEVER NOTED. LAC #22. PATENT, FLUSHING WELL. PT ON ROOM AIR. WILL CONTINUE TO MONITOR. WILL CONTINUE PLAN OF CARE.
[2020-11-30] MEDS: ENOXAPARIN SODIUM 40 MG/0.4 ML DISP.SYRIN SQ SCH (20:24)
[2020-12-01] VITALS: BP 104/63
[2020-12-01 00:09] LABS: CALCIUM, SERUM 8.5 mg/dL (8.5-10.1); CREATININE 0.8 mg/dL (0.6-1.3); POTASSIUM 4.2 mmol/L (3.5-5.1)
[2020-12-01] MEDS: VANCOMYCIN 0.75 GM in IV D5W 250 ML IV SCH (00:38)
[2020-12-01] MEDS: PIPERACILLIN /TAZOBACTAM 3.375 G in IV D5W 50 ML IV SCH ×3 (05:48→17:49)
--- NOTE | 2020-12-01 07:17 | NUR ---
MS/RN CLOSING NOTES PATIENT IN BED AWAKE, ALERT AND ORIENTED X3. ABLE TO VERBALIZE NEEDS. NO S/S OF ACUTE RESPIRATORY DISTRESS NOTED. PATIENT IS ON ROOM AIR, TOLERATING WELL. DENIES PAIN OR DISCOMFORT AT THIS TIME. IV ACCESS ON R HAND #22G PATENT AND INTACT. KEPT CLEAN AND DRY. SAFETY PRECAUTIONS IN PLACE AND MAINTAINED AT ALL TIMES. BED IN LOWEST LOCKED POSITION, HOB ELEVATED, SIDE RAILS UP X 2, CALL LIGHT AND TABLE WITHIN REACH. WILL ENDORSE TO DAY SHIFT.
--- NOTE | 2020-12-01 07:39 | NUR ---
MS RN OPENING NOTES PT RECEIVED AWAKE IN BED IN NO ACUTE SIGNS OF DISTRESS. HOB ELEVATED. A/O X2-3. ABLE TO MAKE NEEDS KNOWN, DENIES PAIN OR ANY DISCOMFORTS AT THIS TIME. ON ROOM AIR, BREATHING EVEN AND UNLABORED. IV SL ON RIGHT HAND INTACT AND PATENT. SAFETY MEASURES IN PLACE: BED IN LOWEST LOCKED POSITION WITH SR UP X2. CALL LIGHT W/IN REACH. WILL CONTINUE TO MONITOR PT ACCORDINGLY.
[2020-12-01 08:00] VITALS: BP 132/77
[2020-12-01] MEDS: PANTOPRAZOLE 40 MG TABLET.DR PO SCH (08:34)
[2020-12-01] MEDS: DAKINS QUARTER STRENGTH (0.125%) 480 ML BOTTLE TOP SCH (09:23)
[2020-12-01] MEDS: CLOTRIMAZOLE 1% 15 GM TUBE TP SCH ×2 (09:23→17:50)
[2020-12-01] MEDS: VANCOMYCIN 1 GM in IV D5W 250 ML IV SCH (15:15)
[2020-12-01 16:00] VITALS: BP 101/60
[2020-12-01 16:50] LABS: BASOPHILS # (AUTO) 0.2 /CMM (0.0-0.2); BASOPHILS % (AUTO) 2.3 % (0.0-2.0); EOSINOPHILS % (AUTO) 7.2 % (0.0-6.0); HEMATOCRIT 33 % (33-45); HEMOGLOBIN 10.3 g/dL (11.5-14.8); LYMPHOCYTES # (AUTO) 1.7 /CMM (0.8-4.8); MEAN CORPUSCULAR HGB CONC 32 g/dl (31.0-36.0); MEAN CORPUSCULAR VOLUME 78 fL (82-100); MONOCYTES # (AUTO) 0.6 /CMM (0.1-1.30); MONOCYTES % (AUTO) 7.9 % (2.0-12.0); NEUTROPHILS # (AUTO) 4.7 /CMM (1.8-8.9); NEUTROPHILS % (AUTO) 60.6 % (43.0-81.0); PLATELET COUNT (AUTO) 614 /CMM (150-450); RED BLOOD CELL COUNT(AUTO) 4.19 MIL/uL (4.0-5.2); WHITE BLOOD COUNT (AUTO) 7.7 K/uL (4.3-11.0)
[2020-12-01 17:04] LABS: CALCIUM, SERUM 8.6 mg/dL (8.5-10.1); CREATININE 0.7 mg/dL (0.6-1.3); POTASSIUM 4.2 mmol/L (3.5-5.1)
--- NOTE | 2020-12-01 18:37 | NUR ---
MS RN CLOSING NOTES PT IN BED AWAKE AND RESTING AT MODERATE HIGH BACKREST POSITION AT THIS TIME. A/O X2-3. ABLE TO MAKE NEEDS KNOWN. ON ROOM AIR, BREATHING EVEN AND UNLABORED. IV SL ON RIGHT HAND INTACT AND PATENT. PROCTOR IN PLACE AND DRAINING CLEAR YELLOW URINE TO BEDSIDE DRAINAGE BAG, PROCTOR CARE DONE. ALL NEEDS AND CARE PROVIDED WELL. SAFETY MEASURES IN PLACE: BED IN LOWEST LOCKED POSITION WITH SR UP X2. CALL LIGHT W/IN REACH. WILL ENDORSE CARMEN TO NIGHT NURSE.
[2020-12-01 20:00] VITALS: BP 94/59
[2020-12-01] MEDS: ENOXAPARIN SODIUM 40 MG/0.4 ML DISP.SYRIN SQ SCH (21:14)
[2020-12-01 22:20] VITALS: BP 107/62
[2020-12-02] MEDS: PIPERACILLIN /TAZOBACTAM 3.375 G in IV D5W 50 ML IV SCH ×5 (00:16→23:27)
--- NOTE | 2020-12-02 04:21 | NUR ---
RN NOTE PATIENT REFUSED SKIN ASSESSMENT THROUGHOUT THE SHIFT, HAS CONFUSION EPISODES, GETS UPSET & AGITATED AT TIMES. WANTED TO SLEEP & NOT TO BE BOTHERED. WILL CONTINUE TO MONITOR FOR CARMEN..
--- NOTE | 2020-12-02 06:50 | NUR ---
RN NOTE PATIENT NOTED WITH SWELLING TO RIGHT HAND IV SITE, NO C/O PAIN VERBALIZED. NOT FLUSHING WELL. ATTEMPTED TO CHANGE THE IV SITE WITH ANOTHER NURSE BUT PATIENT REFUSED & KEPT REPEATING," AFTER BREAKFAST, AFTER BREAKFAST." DESPITE OF EXPLANATIONS, PATIENT CONTINUED TO REFUSE TO CHANGE IV SITE. ENDORSED TO AM RN TO CHANGE IT AFTER BREAKFAST.
--- NOTE | 2020-12-02 07:35 | NUR ---
MS RN OPENING NOTES PT RECEIVED AWAKE IN BED IN NO ACUTE SIGNS OF DISTRESS. HOB ELEVATED. A/O X2-3. ABLE TO MAKE NEEDS KNOWN, DENIES PAIN OR ANY DISCOMFORTS AT THIS TIME. ON ROOM AIR, BREATHING EVEN AND UNLABORED. IV SL ON RIGHT HAND STILL INTACT BUT NOTED WITH SWELLING AT SITE, PT REFUSED TO HAVE IT CHANGED AND REMOVE AT THIS TIME, ADVISED PT TO ELEVATE HAND WITH PILLOW AND WILL TRY TO INSERT ONE LATER. SAFETY MEASURES IN PLACE: BED IN LOWEST LOCKED POSITION WITH SR UP X2. CALL LIGHT W/IN REACH. WILL CONTINUE TO MONITOR PT ACCORDINGLY.
[2020-12-02 08:00] VITALS: BP 106/66
[2020-12-02] MEDS: PANTOPRAZOLE 40 MG TABLET.DR PO SCH (08:02)
[2020-12-02] MEDS: CLOTRIMAZOLE 1% 15 GM TUBE TP SCH ×2 (09:41→17:00)
[2020-12-02] MEDS: DAKINS QUARTER STRENGTH (0.125%) 480 ML BOTTLE TOP SCH (09:41)
--- NOTE | 2020-12-02 12:10 | NUR ---
RN NOTES DR BLEVINS CAME AND SAW PT, INFORMED HIM THAT PT REFUSED BLOOD WORKS THIS MORNING AND REFUSING TO INSERT NEW IV ACCESS. WILL CONTINUE TO MONITOR.
--- NOTE | 2020-12-02 13:11 | NUR ---
RN NOTES PT STILL REFUSING TO INSERT NEW IV ACCESS, ASSESSED HER PRESENT IV ACCESS ON LEFT HAND g #22 AND STILL PATENT AND FUNCTIONING. WILL CONTINUE TO MONITOR.
[2020-12-02 16:00] VITALS: BP 102/69
[2020-12-02] MEDS ORDERED: VANCOMYCIN 1 GM in IV D5W 250 ML IV SCH (16:00)
[2020-12-02] MEDS: VANCOMYCIN 1 GM in IV D5W 250 ML IV SCH (16:05)
--- NOTE | 2020-12-02 18:58 | NUR ---
MS RN CLOSING NOTES PT IN BED AWAKE AND WATCHING TYV AT THIS TIME. A/O X3. ABLE TO MAKE NEEDS KNOWN. WOLF HUNTER JUST CAME AND JOEL BLOOD FROM PT. ON ROOM AIR, BREATHING EVEN AND UNLABORED. IV SL ON LFA G#22 HAND INTACT AND PATENT. PROCTOR IN PLACE AND DRAINING CLEAR YELLOW URINE TO BEDSIDE DRAINAGE BAG, PROCTOR CARE DONE. ALL NEEDS AND CARE PROVIDED WELL. SAFETY MEASURES IN PLACE: BED IN LOWEST LOCKED POSITION WITH SR UP X2. CALL LIGHT W/IN REACH. WILL ENDORSE CARMEN TO NIGHT NURSE.
--- NOTE | 2020-12-02 19:00 | NUR ---
RN OPENING NOTE RECEIVED PATIENT IN BED ALERT ORIENTED X2-3 VERBALLY RESPONSIVE NO SOB NOT ACUTE DISTRESS NOTED,ABLE TO MAKE NEEDS KNOWN,ON ROOM AIR 02:95% IV SITE IS ON LEFT FOREARM INTACT PATENT,PROCTOR CATHETER IN PLACE,URINE DRAINING YELLOW AND CLEAR BY GRAVITY,SAFETY MEASURE IMPLEMENT,BED IN LOW POSITON AND LOCKED BED ALARM IS LIVE IN HOUSEKEEPER LIGHT WITHIN REACH,CONTINUE TO MONITOR.
[2020-12-02 19:04] LABS: CALCIUM, SERUM 8.5 mg/dL (8.5-10.1); CREATININE 0.8 mg/dL (0.6-1.3); POTASSIUM 3.9 mmol/L (3.5-5.1)
[2020-12-02 19:16] LABS: BASOPHILS # (AUTO) 0.1 /CMM (0.0-0.2); EOSINOPHILS % (AUTO) 8.2 % (0.0-6.0); HEMATOCRIT 34 % (33-45); HEMOGLOBIN 10.7 g/dL (11.5-14.8); LYMPHOCYTES # (AUTO) 1.6 /CMM (0.8-4.8); MEAN CORPUSCULAR HGB CONC 31 g/dl (31.0-36.0); MEAN CORPUSCULAR VOLUME 78 fL (82-100); MONOCYTES # (AUTO) 0.5 /CMM (0.1-1.30); MONOCYTES % (AUTO) 7.5 % (2.0-12.0); NEUTROPHILS # (AUTO) 3.7 /CMM (1.8-8.9); NEUTROPHILS % (AUTO) 57.3 % (43.0-81.0); PLATELET COUNT (AUTO) 621 /CMM (150-450); RED BLOOD CELL COUNT(AUTO) 4.36 MIL/uL (4.0-5.2); WHITE BLOOD COUNT (AUTO) 6.4 K/uL (4.3-11.0)
[2020-12-02] MEDS: ENOXAPARIN SODIUM 40 MG/0.4 ML DISP.SYRIN SQ SCH (20:35)
[2020-12-02 22:00] VITALS: BP 103/59
[2020-12-03] MEDS: PIPERACILLIN /TAZOBACTAM 3.375 G in IV D5W 50 ML IV SCH ×4 (05:09→23:51)
--- NOTE | 2020-12-03 06:23 | NUR ---
RN CLOSING NOTE PATIENT REMAINS ON ALERT ORIENTED 2-3 VERBALLY RESPONSIVE NO SOB NOT ACUTE DISTRESS NOTED,ON ROOM AIR 96% ALL DUE MEDS GIVEN MD ORDERED,WOUND TREATMENT DONE,IV SITE IS ON LEFT FOREARM INTACT PATENT, KEPT CLEAN AND DRY ALL THE TIME,KEPT COMFORTABLE ,KEPT CALL LIGHT WITHIN REACH,ENDORSE NEXT COMING SHIFT FOR CONTINUATION OF CARE.
[2020-12-03 08:00] VITALS: BP 105/55
[2020-12-03] MEDS: DAKINS QUARTER STRENGTH (0.125%) 480 ML BOTTLE TOP SCH (08:30)
[2020-12-03] MEDS: CLOTRIMAZOLE 1% 15 GM TUBE TP SCH ×2 (08:30→16:47)
[2020-12-03] MEDS: PANTOPRAZOLE 40 MG TABLET.DR PO SCH (08:30)
[2020-12-03 08:52] LABS: CALCIUM, SERUM 8.6 mg/dL (8.5-10.1); CREATININE 0.8 mg/dL (0.6-1.3); POTASSIUM 3.6 mmol/L (3.5-5.1)
[2020-12-03 10:00] VITALS: BP 105/55
[2020-12-03 16:00] VITALS: BP 110/61
[2020-12-03] MEDS: VANCOMYCIN 1 GM in IV D5W 250 ML IV SCH (16:46)
--- NOTE | 2020-12-03 19:21 | NUR ---
RN MED SURG3 PATIENT IN BED, NO S/S OF DISTRESS, A/O X3, ON ROOM AIR, O2 SAT> 97%, BATHROOM PRIVILEGES, SOFT DIET, SKIN INTACT, L FA 22G FLUSHES WELL CLEAN DRY INTACT, BED IN LOWEST LOCKED POSITION, CALL LIGHT WITHIN REACH, SAFETY MEASURES IN PLACE, WILL CONTINUE TO MONITOR.
[2020-12-03 20:00] VITALS: BP 101/55
--- NOTE | 2020-12-03 20:00 | NUR ---
MS SHIRA INITIAL NOTES RECEIVED PT IN BED AWAKE AND ALERT WATCHING TV AT THIS TIME, DENIES ANY PAIN OR ANY DISCOMFORT. NO SIGNS OF ANY DISTRESS NOTED.PROCTOR TO GRAVITY WITH CLEAR YELLOW OUTPUT NOTED. KEPT HER WARM AND COMFORTABLE AT ALL TIMES. WILL CONTINUE MONITORING.
[2020-12-03] MEDS: ENOXAPARIN SODIUM 40 MG/0.4 ML DISP.SYRIN SQ SCH (21:39)
--- NOTE | 2020-12-04 | NUR ---
ms sean notes patient sleeping comfortably in bed without any distress noted . kept her warm and comfortable at all times. will continue monitoring.
[2020-12-04] MEDS: PIPERACILLIN /TAZOBACTAM 3.375 G in IV D5W 50 ML IV SCH ×3 (06:02→17:44)
--- NOTE | 2020-12-04 07:28 | NUR ---
ms tax services manager closing notes pt resting at this time , not in any acute distress noted. breathing even and unlabored. all due meds given. stable troughout the night and slept well. gilbert to gravity with clear yellow output 1200 for 12 hrs shift. I noticed IV line infiltrated and swollen talked to her that needs to changes it but pt refused to replaced it after slabber draw some bloods even I explained to her why she needs IV line. and patient saying bad words and saying leave me alone. endorse to am nurse for continuity of care.
[2020-12-04 07:39] LABS: CREATININE 0.8 mg/dL (0.6-1.3); POTASSIUM 4.5 mmol/L (3.5-5.1)
--- NOTE | 2020-12-04 07:52 | NUR ---
MS RN OPENING NOTE PATIENT IS IN BED RESTING. PATIENT IS IN NO ACUTE DISTRESS. PATIENT IS ON ROOM AIR. NO SOB NOTED. SAFETY PRECAUTIONS ARE IN PLACE. BED IS LOCKED AND IN THE LOWEST POSITION. HOB ELEVATED. SIDE RAILS ARE UP, CALL LIGHT WITHIN REACH. WILL CONTINUE TO MONITOR CLOSELY THROUGH OUT THE SHIFT.
[2020-12-04 08:00] VITALS: BP 115/64
[2020-12-04] MEDS: PANTOPRAZOLE 40 MG TABLET.DR PO SCH (08:06)
[2020-12-04] MEDS: DAKINS QUARTER STRENGTH (0.125%) 480 ML BOTTLE TOP SCH (08:07)
[2020-12-04] MEDS: CLOTRIMAZOLE 1% 15 GM TUBE TP SCH ×2 (08:08→16:08)
[2020-12-04 16:00] VITALS: BP 109/59
[2020-12-04] MEDS: VANCOMYCIN 1 GM in IV D5W 250 ML IV SCH (16:08)
--- NOTE | 2020-12-04 19:21 | NUR ---
MS RN CLOSING NOTE PATIENT IS IN BED RESTING. PATIENT IN NO ACUTE DISTRESS. PATIENT IS ON ROOM AIR. NO SOB NOTED. HOB ELEVATED. SAFETY PRECAUTIONS ARE IN PLACE. BED IN THE LOWEST POSITION WITH BED ALARM ON. SIDE RAILS ARE UP, CALL LIGHT WITHIN REACH. ENDORSE PATIENTS TO THE DINKEY [facility]RAKEM[facility] NURSE FOR CARMEN.
--- NOTE | 2020-12-04 20:00 | NUR ---
RN NOTES DISCHARGE NOTES: PT. D/C TO [facility] IN STABLE CONDITION ,NO ACUTE DISTRESS NOTED , V/S WNL , PT. D/C WITH DISCHARGE PAPER WORK AND BELONGINGS ,D/C EDUCATION PROVIDED , PT. VERVALIZED UNDERSTANDING.
== END 2020-12-04 20:00 | DRG 710 ==
LOC: ER 18:39 → INTOOBSV 22:41 → TRANSITION 22:41 → UNDOADMOB 22:41 → OBSVTOIN 22:41 → TELE 11-25 13:50 → TRANSITION 11-25 13:50 → TELE 11-26 04:56 → MED 11-26 14:42 → UNDODISIN 12-04 20:00
PROVIDERS: ADMIT Nurse Practitioner Acute Care; ATTEND Internal Medicine
PROC: 0JBN0ZZ Excision of Right Lower Leg Subcutaneous Tissue and Fascia, Open Approach (ICD-10-PCS; principal; 2020-11-27)
PROC: 0KBP0ZZ Excision of Left Hip Muscle, Open Approach (ICD-10-PCS; 2020-11-28)
PROC: 0KBN0ZZ Excision of Right Hip Muscle, Open Approach (ICD-10-PCS; 2020-11-28)
DX: A41.9 Sepsis, unspecified organism (principal); L03.116 Cellulitis of left lower limb; L03.115 Cellulitis of right lower limb; E87.1 Hypo-osmolality and hyponatremia; M46.28 Osteomyelitis of vertebra, sacral and sacrococcygeal region; Z59.0 Homelessness; D68.59 Other primary thrombophilia; J98.11 Atelectasis; E87.6 Hypokalemia; Z99.3 Dependence on wheelchair; Z20.822 Contact with and (suspected) exposure to COVID-19; F15.10 Other stimulant abuse, uncomplicated; Z74.09 Other reduced mobility; L89.154 Pressure ulcer of sacral region, stage 4; D50.9 Iron deficiency anemia, unspecified; I87.2 Venous insufficiency (chronic) (peripheral); L97.921 Non-pressure chronic ulcer of unspecified part of left lower leg limited to breakdown of skin; E44.0 Moderate protein-calorie malnutrition; F29 Unspecified psychosis not due to a substance or known physiological condition; M62.562 Muscle wasting and atrophy, not elsewhere classified, left lower leg; M62.561 Muscle wasting and atrophy, not elsewhere classified, right lower leg
CPT/HCPCS: 36415; 71045-TC; 80048-TC; 80076-TC; 80202-TC; 82550-TC; 83605-TC; 83735-TC; 83880; 84100-TC; 84443-TC; 84484-TC; 85025-TC; 85730-TC; 87040-TC; 87070-TC; 87081-TC; 87086-TC; 88304-TC; 88312-TC; 97112-TC; 97530-TC; A4217; A6253; A6403; A6407; C9803; G0378; G0480; J0330; J0690; J1170; J1650; J2060; J2250; J2270; J2405; J2543; J2704; J3010; J3370; J3475; J3490; J7030; J7050; J7060; Q9967; U0003